=== PATIENT | female | born 2000 | race Caucasian/White ===

== ENCOUNTER 2021-09-25 00:15 | Observation (INO) ==
[2021-09-25] MEDS ORDERED: Ondansetron ODT 4 mg TAB 4 MG TAB SL ONE (00:35)
[2021-09-25] MEDS ORDERED: Lactated Ringers 1000 ml BAG 1,000 ML IV ONE (01:45)
[2021-09-25] MEDS ORDERED: Ondansetron 4 mg VIAL 2 MG/ML 2 ml VIAL IV ONE (01:45)
[2021-09-25] MEDS ORDERED: fentaNYL 100 mcg/2 ml 50 MCG/ML VIAL IV SLOW PU ONE (01:45)
[2021-09-25 02:39] LABS: ABS Basophils 0.1 10^3/ul (0-0.2); ABS Eosinophils 0.1 10^3/ul (0-0.6); ABS Lymphocytes 1.4 10^3/ul (1.0-4.8); ABS Monocytes 0.6 10^3/ul (0-0.8); ABS Neutrophils 11.6 10^3/ul (1.5-7.7); Eosinophil % 0.7 %; Hematocrit 44 % (35-47); Hemoglobin 15.4 g/dL (12.0-16.0); Lymphocyte % 10.1 %; Mean Corpuscular HGB Conc 35 g/dL (31-36); Mean Corpuscular Hemoglobin 31 pg (27-31); Mean Corpuscular Volume 88 fL (80-97); Mean Platelet Volume 8.1 fL (7.4-10.4); Nucleated Red Blood Cells % 0.1; Platelet Count 240 10^3/uL (150-450); Red Cell Distribution Width 12 % (10-15); White Blood Count 13.8 10^3/uL (3.5-10.8)
[2021-09-25 03:23] LABS: Calcium 9.9 mg/dL (8.6-10.3); Potassium 3.4 mmol/L (3.5-5.0); eGFR CKD-EPI 81.7 (>60)
[2021-09-25] MEDS ORDERED: Iohexol 350 (CONTRAST) 500 ML MDV IV ONE (03:26)
[2021-09-25] MEDS ORDERED: Piperacillin/Tazobac ADVAN 3.375 GM in NS 0.9% 100 ml BAG 100 ML IV ONE (04:20)
[2021-09-25 04:59] LABS: ABS Eosinophils 0.1 10^3/ul (0-0.6); ABS Lymphocytes 1.4 10^3/ul (1.0-4.8); ABS Monocytes 0.5 10^3/ul (0-0.8); ABS Neutrophils 9.9 10^3/ul (1.5-7.7); Eosinophil % 0.5 %; Hematocrit 41 % (35-47); Hemoglobin 14.6 g/dL (12.0-16.0); Lymphocyte % 12.1 %; Mean Corpuscular HGB Conc 36 g/dL (31-36); Mean Corpuscular Hemoglobin 32 pg (27-31); Mean Corpuscular Volume 87 fL (80-97); Mean Platelet Volume 8.1 fL (7.4-10.4); Platelet Count 219 10^3/uL (150-450); Red Blood Count 4.65 10^6 /uL (3.70-4.87); Red Cell Distribution Width 13 % (10-15); White Blood Count 11.9 10^3/uL (3.5-10.8)
[2021-09-25 18:09] LABS: ABS Eosinophils 0.3 10^3/ul (0-0.6); ABS Lymphocytes 1.8 10^3/ul (1.0-4.8); ABS Monocytes 0.3 10^3/ul (0-0.8); ABS Neutrophils 3.7 10^3/ul (1.5-7.7); Eosinophil % 4.2 %; Hematocrit 45 % (35-47); Hemoglobin 14.8 g/dL (12.0-16.0); Lymphocyte % 29.5 %; Mean Corpuscular HGB Conc 33 g/dL (31-36); Mean Corpuscular Hemoglobin 29 pg (27-31); Mean Corpuscular Volume 88 fL (80-97); Mean Platelet Volume 7.9 fL (7.4-10.4); Platelet Count 233 10^3/uL (150-450); Red Blood Count 5.05 10^6 /uL (3.70-4.87); Red Cell Distribution Width 13 % (10-15); White Blood Count 6.1 10^3/uL (3.5-10.8)
[2021-09-26 11:03] VITALS: BP 115/74
== END 2021-09-26 13:30 | disposition home or self-care (01) ==
LOC: EDHOLD 00:15 → ED 00:15 → OBSVTOIN 12:19 → INTOOBSV 12:20 → EDHOLD 16:45 → SSU 16:59
PROVIDERS: ADMIT Obstetrics & Gynecology; ATTEND Obstetrics & Gynecology